=== PATIENT | female | born 1985 | race Asian ===

== ENCOUNTER 2022-08-28 19:29 | Emergency (ER) | payer OTHER ==
[~2022-08-28] VITALS: Ht 165.1 cm; Wt 181.4 kg
[2022-08-28 19:40] VITALS: TEMP 98
[2022-08-28 20:23] LABS: POTASSIUM 3.8 mmol/L (3.6-5.2)
[2022-08-28 20:34] LABS: PLATELET COUNT 453 K/uL (152-353)
[2022-08-28 23:15] VITALS: BP 162/98
== END 2022-08-28 23:15 | disposition home or self-care (01) ==
LOC: ED 19:29
PROVIDERS: Family Medicine
DX: J18.9 Pneumonia, unspecified organism (principal); R09.02 Hypoxemia; E66.01 Morbid (severe) obesity due to excess calories; F15.10 Other stimulant abuse, uncomplicated
CPT/HCPCS: 36415; 36600; 80053; 80307; 81000; 81025; 82805; 85008; 85027; 94664; 99283